=== PATIENT | male | born 1990 | race Caucasian/White ===

== ENCOUNTER 2018-12-21 23:07 | Inpatient (IN) | payer OTHER ==
[~2018-12-21 23:07] MED LIST: Dexamethasone 20 MG/5 ML VIAL ONE; Ketorolac Tromethamine 30 MG/ML VIAL ONE; Lidocaine 1% PF 5 ML VIAL ONE; Ondansetron PF 4 MG/2 ML Vial ONE; PROPOFOL 200 MG/20 ML VIAL ONE
[2018-12-21] MEDS ORDERED: Sodium Chloride 0.9% 100 ML ONE (23:25)
[2018-12-21] MEDS ORDERED: Piperacillin/Tazobactam 3.375 GM VIAL ONE (23:25)
--- NOTE | 2018-12-21 23:47 | RAD ---
RADIOGRAPH CHEST 1 VIEW: DATE: 12/21/2018 HISTORY: 28-year-old male for preoperative clearance FINDINGS: There are no airspace densities, pulmonary edema, pneumothorax, or cardiomegaly. The lateral costophr enic angles are sharp. IMPRESSION: No acute cardiopulmonary findings.
[2018-12-22 00:07] LABS: #Eosinphils 0.2 thou/uL (0.0-0.7); #Lymphocytes 1.6 thou/uL (1.20-3.40); #Monocytes 1.2 thou/uL (0.11-0.59); #Neutrophils 12.7 thou/uL (1.40-6.50); %Basophils 0.2 % (0.0-1.0); %Eosinophils 1.5 % (0.0-10.0); %Lymphocytes 10.4 % (21.0-51.0); %Monocytes 7.5 % (0.0-10.0); %Neutrophils 80.4 % (42.0-75.0); Hemoglobin 15.2 g/dL (14.0-18.0); Mean Corpuscular HGB CONC 33.6 g/dL (32.0-36.0); Mean Corpuscular Hemoglobin 31.5 pg (27.0-31.0); Mean Corpuscular Volume 93.8 fL (78.0-98.0); Mean Platelet Volume 9.1 fL (7.4-10.4); Platelet Count 198 thou/uL (130-400); RBC Distribution Width 12.5 % (11.5-14.5); Red Blood Cell (RBC) Count 4.83 mill/uL (4.70-6.10); White Blood Cell (WBC) Count 15.7 thou/uL (4.8-10.8)
[2018-12-22 00:24] LABS: ALT (SGPT) 11 U/L (8-55); AST (SGOT) 29 U/L (5-34); Albumin 4.4 g/dL (3.5-5.0); Alkaline Phosphatase 66 U/L (40-150); Anion Gap 15 mmol/L (10-20); BUN (Urea Nitrogen) 6 mg/dL (8.9-20.6); Bilirubin, Total 1.8 mg/dL (0.2-1.2); Calc. Creatinine Clearance 0 mL/min (70-130); Calcium 9.6 mg/dL (7.8-10.44); Carbon Dioxide 22 mmol/L (22-29); Chloride 105 mmol/L (98-107); Estimated GFR-MDRD Greater than 90; Globulin 3.4 g/dL (2.4-3.5); Glucose 102 mg/dL (70-105); Potassium 3.6 mmol/L (3.5-5.1); Protein, Total 7.8 g/dL (6.0-8.3); Sodium 138 mmol/L (136-145)
[2018-12-22] MEDS ORDERED: Bisacodyl 10 MG SUPP PR PRN (01:34)
[2018-12-22] MEDS ORDERED: Ondansetron PF 4 MG/2 ML Vial IV PRN (01:34)
[2018-12-22] MEDS ORDERED: Promethazine HCl 25 MG/ML VIAL IM PRN ×2 (01:34→01:50)
[2018-12-22] MEDS ORDERED: Morphine 4 MG/ML VIAL SLOW IVP PRN (01:34)
[2018-12-22] MEDS ORDERED: traMADol HCl 50 MG TAB PO PRN (01:34)
[2018-12-22] MEDS ORDERED: Acetaminophen/Codeine 30-300mg Tablet PO PRN (01:34)
[2018-12-22] MEDS ORDERED: Meperidine HCl/PF 25 MG/ML VIAL IM PRN (01:40)
[2018-12-22] MEDS ORDERED: Promethazine HCl 25 MG/ML VIAL SLOW IVP PRN (01:50)
[2018-12-22] MEDS ORDERED: Ondansetron HCl/PF 4 MG/2 ML Vial IVP PRN (01:50)
[2018-12-22] MEDS ORDERED: PACU-Morphine 4MG/ML VIAL SLOW IVP PRN (01:50)
[2018-12-22] MEDS ORDERED: HYDROmorphone 2 MG/ML VIAL SLOW IVP PRN (01:50)
[2018-12-22] MEDS ORDERED: TETANUS AND DIPHTHERIA TOX/PF 0.5 ML DISP.SYRIN IM SCH (02:00)
[2018-12-22 02:53] VITALS: BMI 26.9
[2018-12-22] MEDS: Vancomycin HCl 1.75 GM in Sodium Chloride 0.9% 500 ML IVPB SCH ×3 (04:50→20:56)
[2018-12-22] MEDS: Ketorolac Tromethamine 30 MG/ML VIAL IVP SCH ×4 (04:52→23:48)
--- NOTE | 2018-12-22 05:04 | OP ---
DATE OF PROCEDURE: 12/22/2018 PREOPERATIVE DIAGNOSIS: Abscess involving the extensor tendon sheath and flexor tendon sheath. POSTOPERATIVE DIAGNOSIS: Abscess involving the extensor tendon sheath and flexor tendon sheath. FINDINGS: Appears to have a collar button abscess spreading down the flexor sheath and along the extensor tendon planes, dorsal and palmar aspect of the third web space as well as the middle finger. The patient had a gross purulence beginning from the level of the PIP joint palmar, mid distal third dorsal aspect of the middle finger dorsally, it spread in palmar and dorsal all way to the base of the metacarpals dorsally and just distal to the transcarpal ligament palmarly. PROCEDURES PERFORMED: 1. Incision and drainage of abscess, finger. 2. Incision and drainage of abscess, hand. 3. Radical flexor tenosynovectomy of finger and palm. 4. Extensor tenosynovectomy, finger and palm. 5. Wound debridement deep down to not including bone. ANESTHESIA: General LMA technique. DESCRIPTION OF PROCEDURE: After successful general LMA technique, the limb was prepped and draped. The patient had the time-out done appropriately, blood loss to be approximately 205 mL. We then made a zig-zag incision over the center dorsum of the wound with the angle being progressively radially, and we made a Talha incision beginning at the base of the middle phalanx also radially based, but this extended into the palm to the level of the transcarpal ligament palmarly and dorsum extended into the metacarpal base. Once we had extended the incisions, it was clear the patient had not the abscess obviously in the web space, but it spread along the tissue planes to the level of the mid palm. First, we drained the abscess and took a specimen. Then, we debrided the cavity down to but not including the bone so that we could remove as much infectious involved tissue as possible. Once this was done, we followed the neurovascular bundle distally and then back proximally to avoid damage until we eliminated all possible components of the abscess cavity, the flexor tenosynovectomy was done to prevent flexor tendon involvement once more as was the flexor tendon divided. The patient then had tourniquet deflated after we irrigated with 5 L normal saline solution, used thrombin-soaked Gelfoam along with 4 x 8 to complete the irrigation with thrombin-soaked Gelfoam. Now he achieved hemostasis. Packed the wound each dorsal and palmar with separate 4 x 4 soaked in normal saline, bulky two packs of 4 x 8 dressings, and then 2 Kerlixes were lightly applied, 3-inch William wrap. He left the operating room. [place] digit. No evidence of anesthetic operative complication. Job ID: [id number]
[2018-12-22 05:11] LABS: #Lymphocytes 0.9 thou/uL (1.20-3.40); #Monocytes 0.3 thou/uL (0.11-0.59); #Neutrophils 13.3 thou/uL (1.40-6.50); %Basophils 0.1 % (0.0-1.0); %Eosinophils 0.2 % (0.0-10.0); %Lymphocytes 6.4 % (21.0-51.0); %Neutrophils 91.3 % (42.0-75.0); Hemoglobin 14.4 g/dL (14.0-18.0); INR-International Normal Ratio 1.2; Mean Corpuscular Hemoglobin 30.2 pg (27.0-31.0); Mean Corpuscular Volume 94.5 fL (78.0-98.0); Mean Platelet Volume 9.1 fL (7.4-10.4); PTT 33.3 SEC (22.9-36.1); Platelet Count 188 thou/uL (130-400); Prothrombin Time 14.7 SEC (12.0-14.7); RBC Distribution Width 12.6 % (11.5-14.5); Red Blood Cell (RBC) Count 4.78 mill/uL (4.70-6.10); White Blood Cell (WBC) Count 14.6 thou/uL (4.8-10.8)
[2018-12-22 05:28] LABS: ALT (SGPT) 13 U/L (8-55); AST (SGOT) 29 U/L (5-34); Albumin 4.2 g/dL (3.5-5.0); Alkaline Phosphatase 66 U/L (40-150); Anion Gap 12 mmol/L (10-20); BUN (Urea Nitrogen) 9 mg/dL (8.9-20.6); Bilirubin, Total 1.9 mg/dL (0.2-1.2); Calc. Creatinine Clearance 174 mL/min (70-130); Calcium 9.1 mg/dL (7.8-10.44); Carbon Dioxide 22 mmol/L (22-29); Chloride 105 mmol/L (98-107); Estimated GFR-MDRD Greater than 90; Globulin 3.2 g/dL (2.4-3.5); Glucose 122 mg/dL (70-105); Potassium 4.5 mmol/L (3.5-5.1); Protein, Total 7.4 g/dL (6.0-8.3); Sodium 134 mmol/L (136-145)
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
[2018-12-22] MEDS: Aspirin 81 mg Enteric Coated Tablet PO SCH ×2 (08:27→20:56)
[2018-12-22] MEDS ORDERED: Vancomycin HCl 1 GM in Premix Bag 1 BAG IVPB SCH (09:00)
[2018-12-22] MEDS: HYDROcodone/Acetaminophen 5/325 mg Tablet PO PRN ×2 (10:33→23:52)
[2018-12-22] MEDS: Acetaminophen 325 MG TAB PO PRN (20:56)
[2018-12-23 03:31] LABS: Vancomycin, Trough 22.4 ug/mL
[2018-12-23] MEDS: Vancomycin HCl 1.5 GM in Sodium Chloride 0.9% 250 ML 300 ML IVPB SCH ×3 (04:20→20:54)
[2018-12-23] MEDS: Ketorolac Tromethamine 30 MG/ML VIAL IVP SCH (05:45)
[2018-12-23] MEDS: Aspirin 81 mg Enteric Coated Tablet PO SCH ×2 (08:04→21:03)
[2018-12-23 09:37] LABS: #Eosinphils 0.1 thou/uL (0.0-0.7); #Lymphocytes 2.1 thou/uL (1.20-3.40); #Monocytes 0.8 thou/uL (0.11-0.59); #Neutrophils 6.8 thou/uL (1.40-6.50); %Basophils 0.1 % (0.0-1.0); %Eosinophils 1.2 % (0.0-10.0); %Lymphocytes 21.5 % (21.0-51.0); %Monocytes 8.1 % (0.0-10.0); %Neutrophils 69.1 % (42.0-75.0); Hemoglobin 12.6 g/dL (14.0-18.0); Mean Corpuscular HGB CONC 32.1 g/dL (32.0-36.0); Mean Corpuscular Hemoglobin 30.4 pg (27.0-31.0); Mean Corpuscular Volume 94.6 fL (78.0-98.0); Mean Platelet Volume 8.7 fL (7.4-10.4); Platelet Count 190 thou/uL (130-400); RBC Distribution Width 12.5 % (11.5-14.5); Red Blood Cell (RBC) Count 4.13 mill/uL (4.70-6.10); White Blood Cell (WBC) Count 9.9 thou/uL (4.8-10.8)
[2018-12-23] MEDS: HYDROcodone/Acetaminophen 5/325 mg Tablet PO PRN (12:33)
[2018-12-23] MEDS: Acetaminophen 325 MG TAB PO PRN (21:03)
[2018-12-24 03:27] LABS: Vancomycin, Trough 18.3 ug/mL
[2018-12-24] MEDS: Vancomycin HCl 1.5 GM in Sodium Chloride 0.9% 250 ML 300 ML IVPB SCH ×2 (04:30→12:05)
[2018-12-24] MEDS: HYDROcodone/Acetaminophen 5/325 mg Tablet PO PRN (05:45)
[2018-12-24] MEDS: Aspirin 81 mg Enteric Coated Tablet PO SCH ×2 (09:39→21:06)
[2018-12-24 18:46] LABS: HIV (1/2) Antibody/Antigen Non-Reactive (NonReactive); HIV 1/2 INDEX 0.06 S/CO (<1.00); Hep C IgG Ab Non-Reactive (NonReactive); Hep C Index 0.16 S/CO (0-0.79); Syphilis Antibody Nonreactive (Nonreactive); Syphilis Antibody Index 0.06 S/CO (<1.00 Non-Reactive)
[2018-12-24] MEDS: Linezolid 600 MG TAB PO SCH (21:06)
--- NOTE | 2018-12-24 21:52 | CON ---
DATE OF CONSULTATION: 12/24/2018 REASON FOR CONSULTATION: Left middle finger and hand abscess. HISTORY OF PRESENT ILLNESS: A 28-year-old, with no significant past medical history, who apparently was bitten by an insect in snf and developed inflammatory process with fusiform swelling of the 3rd digit, left hand. Dr. Bolanos performed a surgical debridement. The operative note was reviewed. A Talha incision was made at the base of the middle phalanx, extended into the palm to the level of the transcarpal ligament palmarly. The abscess was noted to spread along the tissue planes to the level of the mid palm. Cavity was debrided down, but not including the bone. A flexor tenosynovectomy was done and then the area was washed and packed. Currently, he is awake. Denies any headaches, visual symptoms, sore throat, odynophagia, or dysphagia. No back pain. No dyspnea, cough, or sputum production. No abdominal pain. No genitourinary symptoms. No other joint symptoms. No neurological symptoms. PAST MEDICAL HISTORY: Otherwise negative. ALLERGY HISTORY: Negative. SOCIAL HISTORY: He is currently incarcerated at [facility]. Former smoker. No IV drug use. PHYSICAL EXAMINATION: VITAL SIGNS: T-max 98.2, blood pressure 130/60, pulse 63, respirations 16, O2 saturation 97%. GENERAL: Appears in no distress. Multiple tattoos. Left hand with dressing. There is an opening of the dorsal aspect of the 3rd digit, left hand, with tendon apparent at the base red tissue undermining, which is a surgical wound. Peripheral IV access. No lymphadenopathy. HEENT: Ocular movements conjugate. Oral cavity normal. NECK: Supple. LUNGS: Symmetric. Clear breath sounds. HEART: S1 and S2, regular rate. No S3 or S4. ABDOMEN: Soft. Not distended or tender. No ascites. No bladder distention. No other joint inflammatory activity. EXTREMITIES: Pulses 1+ in dorsalis pedis. Plantar responses are flexor. Cognitive function appears to be normal. LABORATORY DATA: White cell count 15.7 and 9.9, hemoglobin 12.6, platelets 190. INR 1.2. Sodium 138 and 134, creatinine 0.88, glucose 102 and 122. Bilirubin 1.8. Transaminases and alkaline phosphatase are normal. Albumin 4.4. Vancomycin trough 18. Microbiology with MRSA, susceptibility to tetracyclines, linezolid, rifampin, and vancomycin. ASSESSMENT: Abscess, left hand, 3rd digit and palmar surface, status post surgical debridement. No apparent tendon or bone involvement or joint involvement. We will switch him to oral linezolid and see if the snf will cover that medication. Otherwise, may have to put a PICC line and give more IV vancomycin. Duration of therapy, probably around 2 weeks approximately, maybe longer. Followup CRP, CBC on a weekly basis. Check HIV serology, hepatitis C, and RPR. Job ID: [id number]
[2018-12-25] MEDS: Linezolid 600 MG TAB PO SCH ×2 (09:20→20:14)
[2018-12-25] MEDS: Aspirin 81 mg Enteric Coated Tablet PO SCH ×2 (09:20→20:14)
[2018-12-25] MEDS: HYDROcodone/Acetaminophen 5/325 mg Tablet PO PRN (17:21)
[2018-12-26] MEDS: HYDROcodone/Acetaminophen 5/325 mg Tablet PO PRN ×2 (02:30→16:56)
[2018-12-26] MEDS: Linezolid 600 MG TAB PO SCH ×2 (08:05→21:11)
[2018-12-26] MEDS: Aspirin 81 mg Enteric Coated Tablet PO SCH ×2 (08:05→21:11)
[2018-12-27] MEDS: Linezolid 600 MG TAB PO SCH ×2 (07:43→22:55)
[2018-12-27] MEDS: Aspirin 81 mg Enteric Coated Tablet PO SCH ×2 (07:45→22:55)
--- NOTE | 2018-12-27 17:38 | PRG ---
DATE OF SERVICE: 12/27/2018 SUBJECTIVE: Going for revision surgery later today. No major pain. No respiratory symptoms or abdominal pain. No diarrhea. OBJECTIVE: VITAL SIGNS: Normal. He has been afebrile. EXTREMITIES: There is decreased swelling of the left hand third digit. LUNGS: Clear. HEART: S1 and S2, regular rate. ABDOMEN: Soft, not distended or tender. No ascites. No bladder distention. LABORATORY DATA: White cell count down to 9.9, hemoglobin 12.6, platelets 190. Sodium 134, creatinine 0.88. Microbiology has been noted with MRSA, which was susceptible to the tetracycline, rifampin, vancomycin, linezolid. ASSESSMENT AND DISCUSSION: Abscess, left hand third digit, and palmar surface, status post incision and drainage. No tendon or bone involvement. Once he is transferred, may switch to minocycline 100 mg twice daily plus rifampin 300 mg twice daily and treat for 2 to 3 weeks, but we will have to follow up the results of revision surgery today. Job ID: [id number]
[2018-12-27] MEDS ORDERED: Lidocaine 1% PF 5 ML VIAL ONE (17:45)
[2018-12-27] MEDS ORDERED: PROPOFOL 200 MG/20 ML VIAL ONE (17:45)
[2018-12-27] MEDS ORDERED: Ketorolac Tromethamine 30 MG/ML VIAL ONE (17:45)
[2018-12-27] MEDS ORDERED: Bupivacaine PF 0.5% 30 ML VIAL ONE ×2 (18:17→19:43)
[2018-12-27] MEDS ORDERED: Sodium Chloride 0.9% 0 ML ONE (18:17)
[2018-12-27] MEDS ORDERED: Bacitracin Zinc Ointment 30 gm TUBE ONE ×2 (18:17→19:44)
[2018-12-27] MEDS ORDERED: Sodium Chloride 0.9% 30 ML ONE (19:44)
[2018-12-27] MEDS ORDERED: Thrombin 5000 UNITS/5 ML VIAL ONE (19:44)
[2018-12-27] MEDS ORDERED: Midazolam HCl 2 mg/2 ml Vial ONE (19:53)
[2018-12-27] MEDS ORDERED: Fentanyl 100 MCG/2 ML VIAL ONE ×3 (19:53→22:50)
[2018-12-27] MEDS ORDERED: Meperidine HCl/PF 25 MG/ML VIAL ONE (22:18)
[2018-12-27] MEDS ORDERED: Promethazine HCl 25 MG/ML VIAL SLOW IVP PRN (22:26)
[2018-12-27] MEDS ORDERED: Meperidine HCl/PF 25 MG/ML VIAL SLOW IVP PRN (22:26)
[2018-12-27] MEDS ORDERED: Promethazine HCl 25 MG/ML VIAL IM PRN (22:26)
[2018-12-27] MEDS ORDERED: Ondansetron HCl/PF 4 MG/2 ML Vial IVP PRN (22:26)
[2018-12-28] MEDS: Ketorolac Tromethamine 30 MG/ML VIAL IVP PRN ×2 (00:47→07:06)
[2018-12-28] MEDS: HYDROcodone/Acetaminophen 5/325 mg Tablet PO PRN ×2 (00:47→07:05)
[2018-12-28 03:24] VITALS: TEMP 97.9
--- NOTE | 2018-12-28 03:28 | OP ---
DATE OF PROCEDURE: 12/27/2018 PREOPERATIVE DIAGNOSIS: Open wound, middle finger, dorsal and palmar hand and 3rd webspace 25 cm open wound, wound edge necrosis. POSTOPERATIVE DIAGNOSIS: Open wound, middle finger, dorsal and palmar hand and 3rd webspace 25 cm open wound, wound edge necrosis with no gross infection, only necrotic area of wound of approximately 5 mm x 5 mm area in the webspace. PROCEDURE PERFORMED: Debridement of wound: Techniques used as follows. Was down to include the entire epidermis and dermis, subcutaneous fat. Instrumentation used was [place] blade, tenotomy scissors, 11 blade knife, Harriet and Claudia along with 3 L of Pulsavac irrigation. There was no gross purulence found and minimal wound edge necrosis. Full-thickness skin graft 3 x 1 cm harvested from the ipsilateral left antecubital fossa and then finally closure wound 25 cm complex. INDICATION: Returned for staged wound management now 5-1/2 half days after debridement of the very large Staph aureus methicillin-resistant abscess, treated with vancomycin, began IV Zyvox at the consultation of Infectious Disease. DESCRIPTION OF PROCEDURE: After successful general endotracheal anesthesia, limb prepped and draped. Tourniquet was not used. We then undermined the wound edges completely circumferentially, debrided any denuded epidermis, any necrotic fat, there was an area of fat and mucoid degeneration consistent with the suture line at the exit of the webspace and this was resected leaving almost a 2.5 cm x 11 to 12 mm gap of viable, but uncovered tissue including some tendon. We then used the same debridement techniques on both sides of the webspace, removed approximately 1 cm x 1 cm area skin leaving a 2.5 cm x almost 1 cm area of oblong defect. After debridement was completed, we closed all the areas of both the dorsal and palmar webspace and dorsal hand wound and then measured again. It was approximately 2 cm x 1, so we harvested a 2.5 cm x 1.5 cm full-thickness skin graft, thinned it, and then placed it on the wound and sutured it with a bolster type 4-0 nylon on each of the two maximal edges and then covered this with bacitracin, Adaptic, mineral oil soaked cotton ball with bolster suture applied and then we dressed the rest of the wound with antibiotic ointment, bacitracin, Adaptic dressings, 4x4s, closed the harvest site in the distal antecubital fossa with a running 3-0 chromic gut which was tied in excellent apposition and fibrin and cotton glue did the rest. The patient now had completely closed wounds total approximately 25 cm in the palmar dorsal hand webspace had a bulky dressing applied with a splint in a position of function to help protect from intrinsic contractures and there was no evidence of anesthetic or operative complication. Job ID: [id number]
[2018-12-28] MEDS ORDERED: Vancomycin HCl 1 GM in Premix Bag 1 BAG IVPB SCH (06:00)
[2018-12-28 07:58] VITALS: BP 127/67
[2018-12-28] MEDS: Aspirin 81 mg Enteric Coated Tablet PO SCH (08:31)
[2018-12-28] MEDS: Linezolid 600 MG TAB PO SCH (08:31)
== END 2018-12-28 10:20 | DRG 513 ==
LOC: ERS 23:07 → EEVIPCON 23:07 → SDC/OP 12-22 00:03 → SURG A 12-22 01:34
PROVIDERS: ADMIT Orthopaedic Surgery Hand Surgery; ATTEND Orthopaedic Surgery Hand Surgery
PROC: 0LB80ZZ Excision of Left Hand Tendon, Open Approach (ICD-10-PCS; principal; 2018-12-24)
PROC: 0L980ZZ Drainage of Left Hand Tendon, Open Approach (ICD-10-PCS; 2018-12-24)
DX: M65.142 Other infective (teno)synovitis, left hand (principal); L02.512 Cutaneous abscess of left hand; M65.042 Abscess of tendon sheath, left hand
CPT/HCPCS: 36415; 71045; 80053; 80202; 85025; 85610; 85730; 86780; 86803; 87070; 87077; 87186; 87205; 87389; 96365; J1100; J1885; J2001; J2175; J2250; J2405; J2543; J2704; J3010; J3370; J3490; J7050; S0020